=== PATIENT | male | born 1960 | race Caucasian/White ===

== ENCOUNTER 2020-03-10 17:21 | Observation (INO) ==
[2020-03-10] MEDS ORDERED: SODIUM CHLORIDE 0.9% 1,000 ML IV STA (18:20)
[2020-03-10 19:07] LABS: Basophils % 0.2 % (0.0-0.8); Hematocrit 38.6 VOL% (42.0-52.0); Immature Granulocytes % 0.5 %; Immature Granulocytes Absolute 0.05 #; Lymphocytes # 3.2 10*3/uL (1.4-4.0); Lymphocytes % 29.5 % (21.2-54.2); Mean Corpuscular HGB Conc 33.7 GM/DL (32-36); Mean Platelet Volume 9.8 FL (9.6-12.0); Monocytes % 10.5 % (1.7-12.7); Neutrophils % 59.3 % (38.7-73.9); Platelet Count 352 T/CUMM (130-400); Red Blood Count 4.02 MC/CUMM (3.8-5.5); Red Cell Distribution Width 15.5 % (9.3-17.3)
[2020-03-10 19:18] LABS: Apearance,Urine CLEAR (Clear); Bilirubin,Urine Negative (Negative); Blood, Urine Negative (Negative); Glucose,Urine (UA) 50 mg/dL (Negative); Hyaline Casts,Urine 14 /LPF (0-3); INR 1.1; Ketones,Urine 20 mg/dL (Negative); Mucus,Urine Few /LPF (Occasional); Nitrite,Urine Negative (Negative); PT Patient Result 12.1 SECS (9.8-11.9); Protein,Urine 30 MG/DL; Squamous Epithelial Cell,Urine Occasional /HPF (0-10); Urine Color Amber (Yellow); Urine Specific Gravity 1.018 (1.001-1.035)
[2020-03-10 19:23] LABS: Albumin 4.1 G/DL (3.4-5.0); Bilirubin,Total 0.9 MG/DL (0.2-1.0); Calcium 9.6 MG/DL (8.5-10.1); Osmolality,Calculated 273.8 MOS/KG (273-304); Total Protein 8.8 G/DL (6.4-8.3)
[2020-03-10 19:41] LABS: Barbiturates Screen,Urine Negative (Negative); Benzodiazepines Screen,Urine Negative (Negative); Cannabinoid Screen,Urine Negative (Negative); Opiate Screen,Urine Negative (Negative); Phencyclidine Screen,Urine Negative (Negative)
[2020-03-10] MEDS ORDERED: DEXTROSE 50% 25 GM/50 ML VIAL IV STA (19:42)
[2020-03-10] MEDS ORDERED: DEXTROSE 50% 25 GM/50 ML SYRINGE IV ONE (19:45)
[2020-03-10] MEDS: DEXT 5% NACL 0.45% KCL 10 MEQ 10 MEQ/1,000 ML BAG IV SCH (20:09)
[2020-03-10] MEDS ORDERED: ONDANSETRON 4 MG/2 ML VIAL IV PRN (21:25)
[2020-03-10] MEDS ORDERED: GLUCAGON 1 MG VIAL IM PRN (21:25)
[2020-03-10] MEDS ORDERED: ACETAMINOPHEN 325 MG TABLET PO PRN (21:25)
[2020-03-10] MEDS ORDERED: CYCLOBENZAPRINE 10 MG TABLET PO PRN (21:32)
[2020-03-11] MEDS: ENOXAPARIN 40 MG/0.4 ML SYRINGE SUBCUT SCH ×2 (00:13→21:13)
[2020-03-11] MEDS: DEXTROSE 5% NACL 0.45% 1,000 ML IV SCH ×3 (02:34→15:20)
[2020-03-11] MEDS: DEXT 5% NACL 0.45% KCL 10 MEQ 10 MEQ/1,000 ML BAG IV SCH ×4 (07:03→23:28)
[2020-03-11 09:01] LABS: Basophils % 0.4 % (0.0-0.8); Eosinophils % 0.5 % (0.00-10.9); Hemoglobin 11.4 GM/DL (14.0-18.0); Immature Granulocytes % 0.4 %; Immature Granulocytes Absolute 0.03 #; Lymphocytes # 3.3 10*3/uL (1.4-4.0); Lymphocytes % 40.3 % (21.2-54.2); Mean Corpuscular HGB Conc 32.6 GM/DL (32-36); Mean Corpuscular Volume 96.2 FL (87-102); Mean Platelet Volume 9.7 FL (9.6-12.0); Monocytes % 9.8 % (1.7-12.7); Neutrophils % 48.6 % (38.7-73.9); Platelet Count 327 T/CUMM (130-400); Red Blood Count 3.64 MC/CUMM (3.8-5.5); Red Cell Distribution Width 15.6 % (9.3-17.3); White Blood Count 8.2 T/CUMM (4-12)
[2020-03-11] MEDS: PANTOPRAZOLE 40 MG TABLET PO SCH (09:10)
[2020-03-11] MEDS: buPROPion XL 150 MG TABLET PO SCH (09:10)
[2020-03-11 09:25] LABS: Bilirubin,Total 1.5 MG/DL (0.2-1.0); Osmolality,Calculated 275.5 MOS/KG (273-304); Total Protein 7.3 G/DL (6.4-8.3)
[2020-03-11 09:27] LABS: Total Protein (Chem) 7.3 G/DL (6.4-8.3)
[2020-03-11 10:33] LABS: Albumin (SPE) 4.2 G/DL (3.2-5.3); Albumin (SPE) Rel % 57.2 %; Alpha 1 (SPE) 0.1 G/DL (0.1-0.4); Alpha 1 (SPE) Rel % 1.6 %; Alpha 2 (SPE) 0.8 G/DL (0.4-1.0); Alpha 2 (SPE) Rel % 11.2 %; Beta (SPE) 0.6 G/DL (0.5-1.1); Beta (SPE) Rel % 7.9 %; Gamma (SPE) Rel % 22.1 %
[2020-03-11 10:43] LABS: Gamma (SPE) 1.6 G/DL (0.7-1.7)
[2020-03-11] MEDS: traZODone 50 MG TABLET PO SCH (21:14)
[2020-03-12] MEDS: POTASSIUM CHLORIDE 20 MEQ TABLET PO PRN ×3 (00:59→04:54)
[2020-03-12] MEDS: DEXT 5% NACL 0.45% KCL 10 MEQ 10 MEQ/1,000 ML BAG IV SCH ×3 (02:42→15:34)
[2020-03-12 06:01] LABS: Basophils % 0.5 % (0.0-0.8); Eosinophils # 0.1 10*3/uL (0.0-0.87); Eosinophils % 1.4 % (0.00-10.9); Hematocrit 35.4 VOL% (42.0-52.0); Hemoglobin 11.6 GM/DL (14.0-18.0); Immature Granulocytes % 0.2 %; Immature Granulocytes Absolute 0.02 #; Lymphocytes # 4.5 10*3/uL (1.4-4.0); Lymphocytes % 53.9 % (21.2-54.2); Mean Corpuscular HGB Conc 32.8 GM/DL (32-36); Mean Corpuscular Volume 95.4 FL (87-102); Mean Platelet Volume 10.8 FL (9.6-12.0); Monocytes % 10.1 % (1.7-12.7); Neutrophils % 33.9 % (38.7-73.9); Platelet Count 304 T/CUMM (130-400); Red Blood Count 3.71 MC/CUMM (3.8-5.5); Red Cell Distribution Width 15.6 % (9.3-17.3); White Blood Count 8.4 T/CUMM (4-12)
[2020-03-12 06:27] LABS: Osmolality,Calculated 275.4 MOS/KG (273-304)
[2020-03-12 06:27] LABS: Eosinophils 4 % (0-10); Hypochromasia Slight; Lymphocytes 49 % (20-55); Ovalocytes Slight; Platelet Estimate Adequate; Segmented Neutrophils 36 % (50-85); Total Cells Counted 100
[2020-03-12] MEDS: PANTOPRAZOLE 40 MG TABLET PO SCH (09:36)
[2020-03-12] MEDS: ALPRAZolam 0.5 MG TABLET PO PRN (09:36)
[2020-03-12] MEDS: buPROPion XL 150 MG TABLET PO SCH (09:37)
[2020-03-12] MEDS: ENOXAPARIN 40 MG/0.4 ML SYRINGE SUBCUT SCH (22:06)
[2020-03-12] MEDS: traZODone 50 MG TABLET PO SCH (22:06)
[2020-03-13] MEDS: DEXT 5% NACL 0.45% KCL 10 MEQ 10 MEQ/1,000 ML BAG IV SCH ×2 (03:00→11:26)
[2020-03-13] MEDS: ALPRAZolam 0.5 MG TABLET PO PRN (04:48)
[2020-03-13] MEDS: buPROPion XL 150 MG TABLET PO SCH (08:51)
[2020-03-13] MEDS: PANTOPRAZOLE 40 MG TABLET PO SCH (08:51)
[2020-03-13 12:21] VITALS: BP 144/89
== END 2020-03-13 12:52 | disposition home or self-care (01) ==
LOC: EDBD → EDUNIT# → N.EDINP 17:21 → N.ED 17:21 → N.TELEN 22:58
PROVIDERS: ADMIT Internal Medicine; ATTEND Internal Medicine